=== PATIENT | male | born 1990 | race Caucasian/White ===

== ENCOUNTER 2021-03-26 23:43 | Emergency (ER) | payer SELFPAY ==
[2021-03-27 00:38] VITALS: BP 158/91
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
== END 2021-03-27 04:25 | disposition home or self-care (01) ==
LOC: ED 23:43
DX: M54.42 Lumbago with sciatica, left side (principal)
CPT/HCPCS: 99281